=== PATIENT | male | born 1940 | race Caucasian/White ===

== ENCOUNTER 2018-03-25 10:54 | Emergency (ER) | payer MEDICARE, OTHER ==
[~2018-03-25 10:54] MED LIST: BENADRYL25 M1 PO; HYDROCODONE BIT1 T11 PO; NORVASC10 MG PO; ZOCOR10 MG PO
[2018-03-25] MEDS ORDERED: LIDEX 0.05% CRE15 GM T (11:31)
[2018-03-25] MEDS ORDERED: AUGMENTIN 875875 MG PO (11:31)
== END 2018-03-25 11:23 | disposition home or self-care (01) ==
LOC: ED 10:54
DX: H66.91 Otitis media, unspecified, right ear (principal); L25.9 Unspecified contact dermatitis, unspecified cause; Z79.899 Other long term (current) drug therapy

== ENCOUNTER 2023-06-28 21:47 | Emergency (ER) | payer MEDICARE, OTHER ==
[~2023-06-28] VITALS: Ht 167.6 cm; Wt 97.1 kg
[~2023-06-28 21:47] MED LIST changes: +AUGMENTIN 875875 MG PO; +LIDEX 0.05% CRE15 GM T
[2023-06-28 22:10] LABS: BASO % 0.3 % (0.0-1.0); EOS # 0.4 10*3/uL (0.0-0.4); EOS % 4.1 % (1.0-4.0); LYMPH # 1.9 10*3/uL (1.3-4.4); LYMPH % 17.7 % (27.0-41.0); MEAN CELL VOLUME 94.6 fl (80.0-94.0); MEAN CORPUSCULAR HGB 32.4 pg (27.0-31.0); MEAN CORPUSCULAR HGB CONC 34.3 g/dl (33.0-37.0); MEAN PLATELET VOLUME 9.6 fl (9.6-12.3); MONO # 0.7 10*3/uL (0.1-1.0); MONO % 6.4 % (3.0-9.0); NEUT # 7.6 10*3/uL (2.3-7.9); NEUT % 71.1 % (47.0-73.0); PLATELET COUNT AUTOMATED 248 10*3/uL (130-400); RED BLOOD COUNT 4.44 10*6/uL (4.50-5.90); RED CELL DISTRI WIDTH 12.6 % (0-14.5); WHITE BLOOD COUNT 10.7 10*3/uL (4.8-10.8)
[2023-06-28 22:22] LABS: ACT PARTIAL THROMBO TIME 25.4 SECONDS (20.0-32.1)
[2023-06-28 22:38] LABS: ALKALINE PHOSPHATASE 85 U/L (46-116); BUN 22 mg/dl (9-23); CHLORIDE 103 mmol/L (98-107); POTASSIUM 4.2 mmol/L (3.4-5.1); SGPT/ALT 11 U/L (5-49); TOTAL PROTEIN 6.7 gm/dL (6.0-8.0)
[2023-06-28 23:29] LABS: BILIRUBIN Negative (Negative); BLOOD Negative (Negative); CLARITY Clear (Clear); COLOR Dark Yellow (Yellow); GLUCOSE 2+ (Negative); KETONE Trace (Negative); LEUKO ESTERASE Negative (Negative); NITRITE Negative (Negative); SPECIFIC GRAVITY 1.025 (1.001-1.030)
[2023-06-28 23:42] LABS: FINE GRANULAR CAST 0-2; MUCOUS 2+; WBC 0-2 wbc/hpf (0-5)
== END 2023-06-29 01:14 | disposition home or self-care (01) ==
LOC: ED 21:47
PROVIDERS: Family Medicine; Nurse Practitioner
DX: R42 Dizziness and giddiness (principal); E11.65 Type 2 diabetes mellitus with hyperglycemia; M54.2 Cervicalgia; Z79.2 Long term (current) use of antibiotics; Z79.899 Other long term (current) drug therapy